=== PATIENT | female | born 1940 | race Caucasian/White ===

== ENCOUNTER 2017-01-20 18:33 | Inpatient (IN) | payer OTHER ==
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
--- NOTE | ~2017-01-20 | DS ---
Discharge Summary [facility] [address] [place]. [address] NAME: NAKIA AGUDELO : 40 STATUS : DIS IN PAT#: [id number] AGE: 76 ADM/REG DATE : 01/21/17 MR#: [id number] REPORT SERV DATE: 01/29/17 DICTATED BY: FRANCISCO CHRISTENSEN DATE: 01/27/17 REPORT STATUS : Draft TRANSCRIBED BY: MODNeil DATE: 01/27/17 ADMISSION DATE: 01/21/2017 DISCHARGE DATE: 01/27/2017 DISCHARGE DIAGNOSES: 1. Acute on chronic hypoxic respiratory failure, present on admission. 2. Acute exacerbation of chronic obstructive pulmonary disease. 3. End-stage emphysema. 4. History of cerebrovascular accident. 5. Paroxysmal atrial fibrillation. CONSULTANTS DURING THIS HOSPITALIZATION: Jd Hair M.D. of Pulmonology. INVASIVE PROCEDURES DONE DURING THIS HOSPITALIZATION: None. BRIEF HISTORY OF PRESENT ILLNESS: The patient is a 76-year-old female who presented with hypoxic respiratory failure. So she was admitted. For detailed history and physical exam, please see note dictated by Dr. Mikey Mazariegos on 01/21/2017. HOSPITAL COURSE: After being admitted to the hospital, this patient was given aggressive nebulizing treatments and IV steroids. She persistently had hypoxia so Pulmonology was consulted. Dr. Hari saw the patient in consultation, recommended that her head of the bed be elevated to 30 to 45 degrees, initiated azithromycin and Rocephin despite that there was no evidence of any infection. However, this could potentially benefit in a COPD patient. As we treated, her overall COPD got better, but she still required significant amount of O2 as much as 10 to 15 L. During that time, she also had an episode of paroxysmal atrial fibrillation and with her history of CVA, we had continued her Eliquis. In error, I discontinued the Eliquis yesterday, but I will reinitiate that today. Her heart rate currently is stable on Lopressor which she continues at home. After discussing with the patient that her hypoxia is significant, this patient was counseled regarding DNR and the patient now is DNR. She was also counseled regarding hospice, and the patient would like to go home with hospice. Hospice has been consulted and will see the patient today, and the patient can go home after she is accepted in hospice. DISCHARGE DISPOSITION: Home. DISCHARGE ACTIVITY: As tolerated. DISCHARGE DIET: As tolerated. DISCHARGE MEDICATIONS: Will be deferred to Hospice. FOLLOWUP: Will be done by Hospice. More than 30 minutes spent planning this patient's discharge, discussing philosophy of terminal illnesses as well as end-of-life issues, and documenting this discharge. Discharge Summary [facility] [id number] [place]. [address] NAME: NAKIA AGUDELO : 40 STATUS : DIS IN PAT#: [id number] AGE: 76 ADM/REG DATE : 01/21/17 MR#: [id number] REPORT SERV DATE: 01/29/17 DICTATED BY: FRANCISCO CHRISTENSEN DATE: 01/27/17 REPORT STATUS : Draft TRANSCRIBED BY: SON DATE: 01/27/17 DICTATED BY: Berta Ellis/SON Francisco Christensen M.D. / [id number] CC: Berta Ellis M.D.
--- NOTE | ~2017-01-20 | HP ---
History And Physical [address] [place]. [address] NAME: NAKIA AGUDELO : 40 STATUS : ADM IN PAT#: [id number] AGE: 76 ADM/REG DATE : 01/21/17 MR#: [id number] REPORT SERV DATE: 01/21/17 DICTATED BY: SHAGUFTA WERNER DATE: 01/21/17 REPORT STATUS : Draft TRANSCRIBED BY: MODL DATE: 01/21/17 DATE OF ADMISSION: 01/21/2017 CHIEF COMPLAINT: A 76-year-old female presenting with shortness of breath. HISTORY OF PRESENT ILLNESS: The patient's history was obtained through an interview with the patient, coupled with review of [facility] and [facility] medical records. The patient for about three weeks has had increasing shortness of breath characterized by dyspnea on exertion and orthopnea without paroxysmal nocturnal dyspnea. She has had a cough productive of a clear thick sputum. No blood. She has felt lethargic, sleeping excessively. She has been "dragging" with poor energy and sometimes feels foggy headed and confused. No lower extremity edema. She has had nausea, but no vomiting. She describes chronic back pain in her lower back without sciatica or radiation. She describes it as constant daily for which she is on chronic pain management as she describes the pain as "it is like hell." No chest pain. No headache. No abdominal pain. REVIEW OF SYSTEMS: Otherwise, a 14-point review of systems was obtained and was negative. PAST MEDICAL HISTORY: 1. COPD. 2. Gastroesophageal reflux disorder. 3. Dyslipidemia. 4. Bilateral lacunar strokes. Apparently, this is the reason the patient was started on Eliquis. 5. Cardiac evaluations. Followed by Dr. Mccord. 6. Urinary tract infection. 7. Right bundle-branch block. 8. Chronic back pain, on hydrocodone. PAST SURGICAL HISTORY: 1. Cholecystectomy. 2. Tubal ligation. 3. Right neck nodule surgery. ALLERGIES: MORPHINE AND NICKEL. SOCIAL HISTORY: Continues to smoke. Continues to drink rare alcohol. Is . Has History And Physical [address] [place]. [address] NAME: NAKIA AGUDELO : 40 STATUS : ADM IN PAT#: [id number] AGE: 76 ADM/REG DATE : 01/21/17 MR#: [id number] REPORT SERV DATE: 01/21/17 DICTATED BY: SHAGUFTA WERNER DATE: 01/21/17 REPORT STATUS : Draft TRANSCRIBED BY: SON DATE: 01/21/17 four children. Lives with daughter. Lives in [place], [place]. FAMILY HISTORY: Mother on chronic Coumadin. CURRENT MEDICATIONS: Include albuterol inhaler, Eliquis 2.5 mg p.o. b.i.d., lactobacillus, Robaxin, Remeron, Movantik 25 mg p.o. daily, oxycodone 15 mg every four hours as needed, Protonix 40 mg p.o. daily, Phenergan, triamterene/hydrochlorothiazide 37.5/25 p.o. daily, Incruse Ellipta inhaled daily. PHYSICAL EXAMINATION: VITAL SIGNS: Temperature 97.2, pulse 42, blood pressure 120/59, respiratory rate 20, O2 saturation 83% on room air, 87% on 2 L nasal cannula. GENERAL: A chronically ill-appearing female, but in no evidence of severe distress at this time. HEENT: Pupils equal, round, and reactive to light. No conjunctival pallor. No scleral icterus. Nares are patent. Oropharynx is clear of obstruction. Moist mucous membranes. NECK: Trachea midline. No thyromegaly. LYMPH: No cervical lymphadenopathy. No supraclavicular lymphadenopathy. RESPIRATORY: The patient has inspiratory and expiratory wheezes. No rhonchi. No rales. A labored respiratory effort. CARDIOVASCULAR: Bradycardic, regular rhythm. No murmurs, rubs, or gallops. No extremity edema is appreciated. ABDOMEN: Soft, nontender, nondistended. Normal bowel sounds auscultated throughout. No hepatosplenomegaly. DERMATOLOGICAL: Warm and dry extremities. No pallor. No cyanosis. PSYCHIATRIC: Normal affect. Good mood. Alert and oriented x3. LABORATORY DATA: White blood cell count 9.4, hemoglobin 17, hematocrit 49, platelets 211. Sodium 146, potassium 3.6, chloride 97, bicarb 30, BUN 17, creatinine 1.2, glucose 95. Brain natriuretic peptide 267. Troponin negative. INR 1.2. STUDIES: 1. Chest x-ray by my own evaluation shows COPD with increasing bibasilar changes. 2. EKG by my own evaluation shows sinus rhythm, premature atrial complexes, right bundle- branch block. ASSESSMENT AND PLAN: 1. Hypoxemic respiratory failure. Provide supportive care. 2. Chronic obstructive pulmonary disease exacerbation. Place on IV Solu-Medrol, Duo nebulizers, doxycycline. Counseled tobacco abstinence. 3. Abnormal chest x-ray. Check a CT scan of the chest. 4. History of stroke. Takes chronic Eliquis. EDILBERTO/SON History And Physical [address] [address] NAME: NAKIA AGUDELO : 40 STATUS : ADM IN [facility]#: [id number] AGE: 76 ADM/REG DATE : 01/21/17 MR#: [id number] REPORT SERV DATE: 01/21/17 DICTATED BY: SHAGUFTA WERNER DATE: 01/21/17 REPORT STATUS : Draft TRANSCRIBED BY: SON DATE: 01/21/17 Shagufta Werner M.D. / [id number] CC: MD Carlita Delong M.D. James Hoback Jr., M.D.
[~2017-01-20 18:33] MED LIST: CULTURELLE PO; ELIQUIS 5 MG TAB5 MG PO; MEVACOR40 MG PO; PRILO PO; PROAIR HFA INH; ROXICODONE15 MG PO; SPIRIVA INH; TOPXL25 PO
[2017-01-20 21:52] LABS: BASOPHILS 0.2 %; BASOPHILS ABSOLUTE 0.02 10/3/uL (0.0-0.16); EOSINOPHILS 0.3 %; EOSINOPHILS ABSOLUTE 0.03 10/3/uL (0.0-0.53); HEMOGLOBIN 16.6 g/dL (12.0-16.0); IMMATURE GRANULOCYTES 0.3 %; IMMATURE GRANULOCYTES ABSOLUTE 0.03 10/3/uL (0.0-0.11); LYMPHOCYTES 12.6 %; LYMPHOCYTES ABSOLUTE 1.18 10/3/uL (0.67-4.30); MEAN CORPUS HGB CONC 33.9 g/dL (32.0-36.0); MEAN CORPUSCULAR VOLUME 91.4 fL (80-100); MEAN PLATELET VOLUME 11.9 fL (9.2-13.0); MONOCYTES ABSOLUTE 0.75 10/3/uL (0.21-1.20); NEUTROPHILS 78.6 %; NEUTROPHILS ABSOLUTE 7.37 10/3/uL (2.02-8.40); RBC DISTRIBUTION WIDTH 14.4 % (12.0-16.0); RED CELL COUNT 5.35 10/6/uL (4.0-5.6)
[2017-01-20 21:53] LABS: ER CBC TAT 0 Hrs 07 Mins; HEMATOCRIT 48.9 % (36.0-48.0); MANUAL DIFF NO %; PLATELET COUNT 211 10/3/uL (150-400); WHITE BLOOD CELLS 9.4 10/3/uL (4.5-10.5)
[2017-01-20 21:59] LABS: INTERNATIONAL NORMAL RATI 1.2 UNITS (-); PARTIAL THROMBO TIME 29.7 SEC (22.5-37.2); PROTIME (NOT ORD) 14.6 SEC (12.0-14.5)
[2017-01-20 22:08] LABS: CHEST PAIN PROFILE TAT 0 Hrs 22 Mins; CHLORIDE, SERUM 97 MMOL/L (96-112); CO2 (CARBON DIOXIDE) 30 MMOL/L (24-34); GFR AFRICAN AMERICAN 51 ML/MIN (>=60); GFR NON AFRICAN AMERICAN 44 ML/MIN (>=60); POTASSIUM, SERUM 3.6 MMOL/L (3.5-5.3); SODIUM, SERUM 136 MMOL/L (135-148); TROPONIN I <0.02 NG/ML (<0.05)
[2017-01-20 22:09] LABS: BUN (BLOOD UREA NITROGEN) 17 MG/DL (6-23); GLUCOSE, SERUM 95 MG/DL (60-99)
[2017-01-21] MEDS ORDERED: ELIQUIS 2.5 MG2.5 MG PO (01:42)
[2017-01-21] MEDS ORDERED: INCRUSE ELLI62.5 MCG INH (01:43)
[2017-01-21] MEDS ORDERED: ROXICODONE15 MG PO (01:43)
[2017-01-21] MEDS ORDERED: PROAIR HFA INH (01:43)
[2017-01-21] MEDS ORDERED: METHOC750B PO (01:44)
[2017-01-21] MEDS ORDERED: PROTONIX PO (01:44)
[2017-01-21] MEDS ORDERED: MOVANTIK25 MG PO (01:45)
[2017-01-21] MEDS ORDERED: REM15 PO (01:45)
[2017-01-21] MEDS ORDERED: PR25 PO (01:45)
[2017-01-21] MEDS ORDERED: CULTURELLE1 EACH PO (01:46)
[2017-01-21] MEDS ORDERED: MAX25 PO (01:46)
[2017-01-21 04:19] LABS: ALLENS TEST Pos; BE (BASE EXCESS) -1.2 MEQ/L (0 +/- 2.5); DEVICE NC; HCO3 (ACTUAL BICARBONATE) 20.9 MEQ/L (23-27); HEMOBLOGIN CONTENT 15.6 G/DL (12-16); INSTRUMENT SERIAL # 8087; METHEMOGLOBIN 0.3 % (0-3); O2 CONTENT 19.4 VOL% (18-24); OPERATOR ID 33449; PCO2 (CO2 TENSION) 29 MMHG (35-45); PO2 (O2 TENSION) 57 MMHG (79-93); SAMPLE Arterial; pH 7.48 (7.37-7.43)
[2017-01-21 09:04] LABS: BASOPHILS 0.1 %; BASOPHILS ABSOLUTE 0.01 10/3/uL (0.0-0.16); EOSINOPHILS 0 %; HEMATOCRIT 44.7 % (36.0-48.0); HEMOGLOBIN 14.7 g/dL (12.0-16.0); IMMATURE GRANULOCYTES 0.4 %; IMMATURE GRANULOCYTES ABSOLUTE 0.03 10/3/uL (0.0-0.11); LYMPHOCYTES 8.5 %; LYMPHOCYTES ABSOLUTE 0.64 10/3/uL (0.67-4.30); MEAN CORPUS HGB CONC 32.9 g/dL (32.0-36.0); MEAN CORPUSCULAR HEMOGLOB 30.1 pg (26.0-34.0); MEAN CORPUSCULAR VOLUME 91.6 fL (80-100); MEAN PLATELET VOLUME 11.3 fL (9.2-13.0); MONOCYTES 1.2 %; MONOCYTES ABSOLUTE 0.09 10/3/uL (0.21-1.20); NEUTROPHILS 89.8 %; NEUTROPHILS ABSOLUTE 6.72 10/3/uL (2.02-8.40); PLATELET COUNT 168 10/3/uL (150-400); RBC DISTRIBUTION WIDTH 14.4 % (12.0-16.0); RED CELL COUNT 4.88 10/6/uL (4.0-5.6); WHITE BLOOD CELLS 7.5 10/3/uL (4.5-10.5)
[2017-01-21 09:06] LABS: MANUAL DIFF NO %
[2017-01-21 11:18] LABS: PARTIAL THROMBO TIME 32.3 SEC (22.5-37.2)
[2017-01-21 11:20] LABS: INTERNATIONAL NORMAL RATI 1.3 UNITS (-); PROTIME (NOT ORD) 15.9 SEC (12.0-14.5)
[2017-01-21 11:35] LABS: ALBUMIN 3.3 G/DL (3.5-5.0); ALKALINE PHOSPHATASE 75 U/L (45-117); CALCIUM, SERUM 9.2 MG/DL (8.5-10.4); CHLORIDE, SERUM 100 MMOL/L (96-112); CO2 (CARBON DIOXIDE) 27 MMOL/L (24-34); CREATININE 1.04 MG/DL (0.55-1.02); GFR AFRICAN AMERICAN 60 ML/MIN (>=60); GFR NON AFRICAN AMERICAN 52 ML/MIN (>=60); PHOSPHORUS, SERUM 3.9 MG/DL (2.5-4.5); POTASSIUM, SERUM 4.3 MMOL/L (3.5-5.3); SGPT(ALT) 16 U/L (5-65); SODIUM, SERUM 135 MMOL/L (135-148); TOTAL BILIRUBIN 0.5 MG/DL (0-1.2); TOTAL PROTEIN 8.2 G/DL (6.0-8.5); TROPONIN I <0.02 NG/ML (<0.05)
[2017-01-21 11:37] LABS: A/G RATIO 0.7 (0.7-1.9); BUN (BLOOD UREA NITROGEN) 21 MG/DL (6-23); GLOBULIN 4.9 G/DL (2.5-4.1); GLUCOSE, SERUM 159 MG/DL (60-99); SGOT(AST) 20 U/L (5-40); ULTRASENSITIVE TSH 0.487 MCIU/ML (0.358-3.740)
[2017-01-21 12:32] LABS: PROCALCITONIN 0.08 ng/mL (<0.5)
[2017-01-22 03:31] LABS: BE (BASE EXCESS) 1.9 MEQ/L (0 +/- 2.5); CARBOXYHEMOGLOBIN 0.5 % (0-3); HCO3 (ACTUAL BICARBONATE) 25.6 MEQ/L (23-27); HEMOBLOGIN CONTENT 15.5 G/DL (12-16); INSTRUMENT SERIAL # 35151; METHEMOGLOBIN 0.5 % (0-3); O2 CONTENT 18.5 VOL% (18-24); OPERATOR ID 18978; PCO2 (CO2 TENSION) 37 MMHG (35-45); PO2 (O2 TENSION) 46 MMHG (79-93); SAMPLE Arterial; pH 7.45 (7.37-7.43)
[2017-01-22 03:32] LABS: ALLENS TEST Pos; DEVICE NC
[2017-01-22 04:36] LABS: HEMATOCRIT 43.7 % (36.0-48.0); HEMOGLOBIN 14.8 g/dL (12.0-16.0); MEAN CORPUS HGB CONC 33.9 g/dL (32.0-36.0); MEAN CORPUSCULAR HEMOGLOB 30.6 pg (26.0-34.0); MEAN CORPUSCULAR VOLUME 90.3 fL (80-100); MEAN PLATELET VOLUME 11.6 fL (9.2-13.0); PLATELET COUNT 162 10/3/uL (150-400); RBC DISTRIBUTION WIDTH 14.3 % (12.0-16.0); RED CELL COUNT 4.84 10/6/uL (4.0-5.6); WHITE BLOOD CELLS 9.8 10/3/uL (4.5-10.5)
[2017-01-22 04:38] LABS: MANUAL DIFF YES %
[2017-01-22 05:00] LABS: BAND NEUTROPHILS 17 %; LYMPHOCYTES 5 %; LYMPHOCYTES ABSOLUTE (CALC) 0.49 10/3/uL (0.67-4.30); MONOCYTES 5 %; MONOCYTES ABSOLUTE (CALC) 0.49 10/3/uL (0.21-1.20); NEUTROPHILS ABSOLUTE (CALC) 8.82 10/3/uL (2.02-8.40); PLATELET ESTIMATE ADQ (ADEQUATE); RBC MORPHOLOGY NORM (NORMAL); SEGMENTED NEUTROPHIL (0) 73 %; TOTAL NUCLEATED CELLS 100
[2017-01-22 05:52] LABS: PROCALCITONIN 0.11 ng/mL (<0.5)
[2017-01-22 06:16] LABS: ALBUMIN 3.2 G/DL (3.5-5.0); BUN (BLOOD UREA NITROGEN) 20 MG/DL (6-23); CALCIUM, SERUM 8.9 MG/DL (8.5-10.4); CHLORIDE, SERUM 100 MMOL/L (96-112); CO2 (CARBON DIOXIDE) 24 MMOL/L (24-34); CREATININE 0.73 MG/DL (0.55-1.02); GFR AFRICAN AMERICAN 93 ML/MIN (>=60); GFR NON AFRICAN AMERICAN 80 ML/MIN (>=60); GLUCOSE, SERUM 105 MG/DL (60-99); POTASSIUM, SERUM 3.4 MMOL/L (3.5-5.3); SODIUM, SERUM 136 MMOL/L (135-148)
[2017-01-23 05:29] LABS: BASOPHILS 0.1 %; BASOPHILS ABSOLUTE 0.01 10/3/uL (0.0-0.16); EOSINOPHILS 0 %; HEMATOCRIT 44.1 % (36.0-48.0); HEMOGLOBIN 14.4 g/dL (12.0-16.0); IMMATURE GRANULOCYTES 0.3 %; IMMATURE GRANULOCYTES ABSOLUTE 0.03 10/3/uL (0.0-0.11); LYMPHOCYTES 6.8 %; LYMPHOCYTES ABSOLUTE 0.71 10/3/uL (0.67-4.30); MEAN CORPUS HGB CONC 32.7 g/dL (32.0-36.0); MEAN CORPUSCULAR HEMOGLOB 30.2 pg (26.0-34.0); MEAN CORPUSCULAR VOLUME 92.5 fL (80-100); MEAN PLATELET VOLUME 11.8 fL (9.2-13.0); MONOCYTES 6.5 %; MONOCYTES ABSOLUTE 0.68 10/3/uL (0.21-1.20); NEUTROPHILS 86.3 %; NEUTROPHILS ABSOLUTE 8.98 10/3/uL (2.02-8.40); PLATELET COUNT 179 10/3/uL (150-400); RBC DISTRIBUTION WIDTH 14.3 % (12.0-16.0); RED CELL COUNT 4.77 10/6/uL (4.0-5.6); WHITE BLOOD CELLS 10.4 10/3/uL (4.5-10.5)
[2017-01-23 05:35] LABS: MANUAL DIFF NO %
[2017-01-23 05:40] LABS: BUN (BLOOD UREA NITROGEN) 23 MG/DL (6-23); CALCIUM, SERUM 9.1 MG/DL (8.5-10.4); CHLORIDE, SERUM 102 MMOL/L (96-112); CO2 (CARBON DIOXIDE) 29 MMOL/L (24-34); CREATININE 0.84 MG/DL (0.55-1.02); GFR AFRICAN AMERICAN 78 ML/MIN (>=60); GFR NON AFRICAN AMERICAN 68 ML/MIN (>=60); GLUCOSE, SERUM 90 MG/DL (60-99); PHOSPHORUS, SERUM 2.5 MG/DL (2.5-4.5); SODIUM, SERUM 138 MMOL/L (135-148)
[2017-01-23 19:19] LABS: FREE T4 1.91 NG/DL (0.76-1.46)
[2017-01-24 05:11] LABS: BASOPHILS 0.1 %; BASOPHILS ABSOLUTE 0.01 10/3/uL (0.0-0.16); EOSINOPHILS 0 %; HEMATOCRIT 41.5 % (36.0-48.0); HEMOGLOBIN 13.5 g/dL (12.0-16.0); IMMATURE GRANULOCYTES 0.5 %; IMMATURE GRANULOCYTES ABSOLUTE 0.06 10/3/uL (0.0-0.11); LYMPHOCYTES 6.9 %; LYMPHOCYTES ABSOLUTE 0.83 10/3/uL (0.67-4.30); MEAN CORPUS HGB CONC 32.5 g/dL (32.0-36.0); MEAN CORPUSCULAR HEMOGLOB 30.1 pg (26.0-34.0); MEAN CORPUSCULAR VOLUME 92.4 fL (80-100); MEAN PLATELET VOLUME 12.1 fL (9.2-13.0); MONOCYTES 8.2 %; MONOCYTES ABSOLUTE 0.98 10/3/uL (0.21-1.20); NEUTROPHILS 84.3 %; NEUTROPHILS ABSOLUTE 10.11 10/3/uL (2.02-8.40); PLATELET COUNT 189 10/3/uL (150-400); RBC DISTRIBUTION WIDTH 14.5 % (12.0-16.0); RED CELL COUNT 4.49 10/6/uL (4.0-5.6)
[2017-01-24 05:12] LABS: MANUAL DIFF NO %
[2017-01-24 05:32] LABS: ALBUMIN 2.7 G/DL (3.5-5.0); BUN (BLOOD UREA NITROGEN) 22 MG/DL (6-23); CALCIUM, SERUM 8.4 MG/DL (8.5-10.4); CHLORIDE, SERUM 103 MMOL/L (96-112); CO2 (CARBON DIOXIDE) 31 MMOL/L (24-34); CREATININE 0.85 MG/DL (0.55-1.02); GFR AFRICAN AMERICAN 77 ML/MIN (>=60); GFR NON AFRICAN AMERICAN 67 ML/MIN (>=60); GLUCOSE, SERUM 72 MG/DL (60-99); SODIUM, SERUM 137 MMOL/L (135-148)
[2017-01-25 04:35] LABS: ALBUMIN 2.5 G/DL (3.5-5.0); BUN (BLOOD UREA NITROGEN) 20 MG/DL (6-23); CALCIUM, SERUM 8.5 MG/DL (8.5-10.4); CHLORIDE, SERUM 107 MMOL/L (96-112); CO2 (CARBON DIOXIDE) 32 MMOL/L (24-34); CREATININE 0.66 MG/DL (0.55-1.02); GFR AFRICAN AMERICAN 99 ML/MIN (>=60); GFR NON AFRICAN AMERICAN 86 ML/MIN (>=60)
[2017-01-25 04:37] LABS: GLUCOSE, SERUM 90 MG/DL (60-99); SODIUM, SERUM 146 MMOL/L (135-148)
[2017-01-26 05:07] LABS: BASOPHILS 0.1 %; BASOPHILS ABSOLUTE 0.01 10/3/uL (0.0-0.16); EOSINOPHILS 0.1 %; EOSINOPHILS ABSOLUTE 0.01 10/3/uL (0.0-0.53); HEMATOCRIT 40.1 % (36.0-48.0); IMMATURE GRANULOCYTES 0.6 %; IMMATURE GRANULOCYTES ABSOLUTE 0.05 10/3/uL (0.0-0.11); LYMPHOCYTES 10.6 %; LYMPHOCYTES ABSOLUTE 0.96 10/3/uL (0.67-4.30); MANUAL DIFF NO %; MEAN CORPUS HGB CONC 32.4 g/dL (32.0-36.0); MEAN CORPUSCULAR VOLUME 92.6 fL (80-100); MEAN PLATELET VOLUME 11.5 fL (9.2-13.0); MONOCYTES 10.2 %; MONOCYTES ABSOLUTE 0.92 10/3/uL (0.21-1.20); NEUTROPHILS 78.4 %; NEUTROPHILS ABSOLUTE 7.08 10/3/uL (2.02-8.40); PLATELET COUNT 214 10/3/uL (150-400); RBC DISTRIBUTION WIDTH 14.1 % (12.0-16.0); RED CELL COUNT 4.33 10/6/uL (4.0-5.6)
[2017-01-26 12:05] LABS: THYROID PEROXIDASE AUTO AB 2.4 IU/mL (0.0-9.0)
[2017-01-26 13:05] LABS: THYROGLOBULIN AUTO ANTIBODY <0.9 IU/mL (0.0-4.0)
== END 2017-01-27 13:46 | disposition hospice, home (50) | DRG 189 ==
LOC: ER 18:33 → 5NO 01-21 01:44
PROVIDERS: Hospitalist; Internal Medicine; Nurse Practitioner
DX: J96.21 Acute and chronic respiratory failure with hypoxia (principal); E43 Unspecified severe protein-calorie malnutrition; J44.1 Chronic obstructive pulmonary disease with (acute) exacerbation; Z68.1 Body mass index [BMI] 19.9 or less, adult; R64 Cachexia; I48.0 Paroxysmal atrial fibrillation; Z86.73 Personal history of transient ischemic attack (TIA), and cerebral infarction without residual deficits; Z79.01 Long term (current) use of anticoagulants; K21.9 Gastro-esophageal reflux disease without esophagitis; Z51.5 Encounter for palliative care; Z90.49 Acquired absence of other specified parts of digestive tract; G89.4 Chronic pain syndrome; Z79.891 Long term (current) use of opiate analgesic
CPT/HCPCS: 36600; 71010; 71275; 80048; 80053; 80069; 82805; 83735; 83880; 84100; 84145; 84439; 84443; 84479; 84481; 84484; 85025; 85610; 85730; 86376; 86800; 87040; 87070; 87077; 87186; 87205; 93005; 93306; 94640; 94660; 94667; 94668; 96374; 99285; A9270-GY; J0456; J2920; J2930; J3411